=== PATIENT | male | born 1975 | race Hispanic/Latino ===

== ENCOUNTER 2019-07-13 23:46 | Emergency (ER) | payer SELFPAY ==
[2019-07-14] MEDS ORDERED: Ondansetron PF 4 MG/2 ML Vial ONE (00:14)
[2019-07-14] MEDS ORDERED: Sodium Chloride 0.9% 1,000 ML ONE (00:14)
[2019-07-14] MEDS ORDERED: Donnatal Elixir 16.2 MG/5 ML UDCUP ONE (00:15)
[2019-07-14] MEDS ORDERED: Lidocaine Viscous Sol 2% 15 ml UD Cup ONE (00:16)
[2019-07-14] MEDS ORDERED: Mag-Al Plus 1200 MG/1200 MG/120 MG/30 ML UDCUP ONE (00:16)
[2019-07-14 00:17] LABS: #Basophils 0.1 thou/uL (0.0-0.2); #Eosinphils 0.3 thou/uL (0.0-0.7); #Monocytes 0.6 thou/uL (0.11-0.59); #Neutrophils 6.2 thou/uL (1.40-6.50); %Eosinophils 3.7 % (0.0-10.0); %Lymphocytes 21.8 % (21.0-51.0); %Monocytes 6.1 % (0.0-10.0); %Neutrophils 67.4 % (42.0-75.0); Mean Corpuscular HGB CONC 32.9 g/dL (32.0-36.0); Mean Corpuscular Hemoglobin 32.3 pg (27.0-31.0); Mean Corpuscular Volume 98.3 fL (78.0-98.0); Mean Platelet Volume 7.3 fL (7.4-10.4); Platelet Count 211 thou/uL (130-400); RBC Distribution Width 11.4 % (11.5-14.5); Red Blood Cell (RBC) Count 4.32 mill/uL (4.70-6.10); White Blood Cell (WBC) Count 9.2 thou/uL (4.8-10.8)
[2019-07-14 00:45] LABS: ALT (SGPT) 28 U/L (8-55); AST (SGOT) 19 U/L (5-34); Albumin 4.4 g/dL (3.5-5.0); Alkaline Phosphatase 81 U/L (40-110); Anion Gap 15 mmol/L (10-20); BUN (Urea Nitrogen) 15 mg/dL (8.9-20.6); Bilirubin, Total 0.5 mg/dL (0.2-1.2); CK (CPK) 231 U/L (30-200); Calc. Creatinine Clearance 0 mL/min (70-130); Calcium 8.8 mg/dL (7.8-10.44); Carbon Dioxide 24 mmol/L (22-29); Chloride 102 mmol/L (98-107); Estimated GFR-MDRD 76; Globulin 2.7 g/dL (2.4-3.5); Glucose 185 mg/dL (70-105); Lipase 33 U/L (8-78); Potassium 3.7 mmol/L (3.5-5.1); Protein, Total 7.1 g/dL (6.0-8.3); Sodium 137 mmol/L (136-145)
[2019-07-14 00:54] LABS: Bilirubin Negative (Negative); Blood, Urine Trace (Negative); Clarity Slightly Cloudy (Clear); Glucose, Urine (Dipstick) 100 mg/dL (Negative); Leukocyte Negative (Negative); Nitrite Negative (Negative); Protein, Urine (Dipstick) Negative (Neg-Trace); Urobilinogen 0.2 mg/dL (Less than 2)
[2019-07-14 00:56] LABS: Bacteria/HPF Rare-Few HPF (None Seen); WBC/HPF None Seen HPF (0-3)
[2019-07-14] MEDS ORDERED: Ketorolac Tromethamine 30 MG/ML VIAL ONE (02:04)
--- NOTE | 2019-07-14 07:50 | CT ---
PRELIMINARY REPORT/[facility]/EMERGENCY AFTER HOURS PROCEDURE PROCEDURE INFORMATION: Exam: CT Angiography Chest With Contrast Exam date and time: 07/14/2019 12:48 AM Clinical history: 43 years old, male; Chest pain; Type not specified; Abdominal pain; Patient HX: PT complaining of epigastric pain , chest , abd TECHNIQUE: Imaging protocol: Computed tomographic angiography of the chest with intravenous contrast. 3D rendering: MIP reconstructed images were created and reviewed. Radiation optimization: All CT scans at this facility use at least one of these dose optimization techniques: automated exposure control; mA and/or kV adjustment per patient size (includes targeted exams where dose is matched to clinical indication); or iterative reconstruction. Contrast material: ISOVUE 370; Contrast volume: 100 ml; Contrast route: LT ARM; COMPARISON: No relevant prior studies available. FINDINGS: Pulmonary arteries: No main pulmonary artery emboli. Evaluation beyond the main pulmonary arteries is limited secondary to suboptimal contrast opacification and respiratory motion. Aorta: No thoracic aortic aneurysm or dissection. Lungs: Mild bibasilar atelectasis. Minimal scattered centrilobular emphysema. Small focus of scarring within the right upper lobe along the fissure. Pleural space: Unremarkable. No pneumothorax. No pleural effusion. Heart: Unremarkable. No cardiomegaly. No pericardial effusion. Lymph nodes: Unremarkable. No enlarged lymph nodes. Bones/joints: Unremarkable. No acute fracture. Soft tissues: Unremarkable. IMPRESSION: 1. No thoracic aortic aneurysm or dissection. 2. No acute thoracic abnormality. PROCEDURE INFORMATION: Exam: CT Angiography Abdomen With Contrast Exam date and time: 07/14/2019 12:48 AM Clinical history: 43 years old, male; Chest pain; Type not specified; Abdominal pain; Patient HX: PT complaining of epigastric pain , chest , abd TECHNIQUE: Imaging protocol: Computed tomographic angiography images of the abdomen with intravenous contrast material. 3D rendering: MIP reconstructed images were created and reviewed. Radiation optimization: All CT scans at this facility use at least one of these dose optimization techniques: automated exposure control; mA and/or kV adjustment per patient size (includes targeted exams where dose is matched to clinical indication); or iterative reconstruction. Contrast material: ISOVUE 370; Contrast volume: 100 ml; Contrast route: LT ARM; COMPARISON: No relevant prior studies available. FINDINGS: VASCULATURE: Aorta: Normal abdominal aorta and iliac arteries. Celiac trunk and mesenteric arteries: No occlusion or significant stenosis. Renal arteries: No occlusion or significant stenosis. ABDOMEN: Liver: Normal. No mass. Gallbladder and bile ducts: Normal. No calcified stones. No ductal dilation. Pancreas: Normal. No ductal dilation. Spleen: Normal. No splenomegaly. Adrenals: Normal. No mass. Kidneys and ureters: Normal. No hydronephrosis. Stomach and bowel: Unremarkable. No obstruction. No mucosal thickening. Lymph nodes: Unremarkable. No enlarged lymph nodes. Intraperitoneal space: Unremarkable. No free air. No significant fluid collection. Bones/joints: Unremarkable. No acute fracture. No dislocation. Soft tissues: Unremarkable. IMPRESSION: 1. Normal abdominal aorta and iliac arteries. 2. No acute abdominal abnormality. Thank you for allowing us to participate in the care of your patient. Dictated and Authenticated by: Jacob Saenz MD 07/14/2019 1:49 AM Central Time ([place] & [place]) FINAL REPORT EMERGENT AFTER HOURS CT ANGIOGRAM THORAX AND ABDOMEN WITH IV CONTRAST AND 3D RECONSTRUCTIONS: HISTORY: Chest, back, and abdominal pain. COMPARISON: None. IMPRESSION: 1. The thoracic and abdominal aorta are normal in caliber without evidence of an aortic dissection. 2. Incidental note is made of a circumaortic left renal vein. 3. Mild patchy and slight nodular density within the inferior aspect of the right lower lobe which on coronal imaging appears to represent an area of scarring. A few scattered thin-walled cysts are seen within the lungs bilaterally. 4. No acute findings are seen in the chest or abdomen. 5. No CT evidence of appendicitis. 6. Findings are in agreement with the preliminary report by [facility]. Code QA Transcribed Date/Time: 07/14/2019 7:54 AM
== END 2019-07-14 02:32 | disposition home or self-care (01) ==
LOC: MADERS 23:46
DX: K29.00 Acute gastritis without bleeding (principal)
CPT/HCPCS: 36415; 71275; 72191; 74175; 80053; 81003; 81015; 82550; 83605; 83690; 84484; 85025; 93005; 96361; 96374; 96375; J1885; J2405; J7050